=== PATIENT | male | born 1955 | race African-American/Black ===

== ENCOUNTER → 2025-06-29 | Outpatient (CLI) | payer OTHER ==
--- NOTE | 2025-06-30 10:59 | HMCIMG ---
EXAM: CT Cardiac calcium scoring. CLINICAL HISTORY: CAD screening. TECHNIQUE: Thin collimated axial CT cardiac images were obtained. A CT scan is done according to ALARA (As Low As Reasonably Achievable). CONTRAST: None. COMPARISON: None provided. FINDINGS: Calcium Score: VESSEL Number of lesions Volume mm3 Equi. Mass/mg Calcium score LM 1 2.1 --.-- 1.1 LAD 0 00.00 00.00 00.00 LCX 0 00.00 00.00 00.00 RCA 0 00.00 00.00 00.00 Total 1 2.1 --.-- 1.1 IMPRESSION: The calcium score is 1.1. This places the patient below 25th percentile in comparison to a group of patients asymptomatic for coronary artery disease with the same age and gender. This means that >75% of males aged 65-69 have a calcium score that is higher than the patient's. /[place]
== END | disposition home or self-care (01) ==
LOC: RAH 12:28
PROVIDERS: ATTEND Internal Medicine Critical Care Medicine
DX: Z13.6 Encounter for screening for cardiovascular disorders (principal); I25.10 Atherosclerotic heart disease of native coronary artery without angina pectoris
CPT/HCPCS: 75571